=== PATIENT | female | born 2000 | race Caucasian/White ===

== ENCOUNTER 2021-04-08 11:10 | Emergency (ER) | payer OTHER ==
[2021-04-08 12:39] LABS: Bilirubin Neg (Negative); Blood, Urine Negative (Negative); Clarity Slightly Cloudy (Clear); Glucose, Urine (Dipstick) Normal (Negative); Ketone, Urine 15 mg/dL (Negative); Leukocyte 500 (Negative); Nitrite Negative (Negative); Protein, Urine (Dipstick) 15 mg/dl (Neg-Trace); Urobilinogen Normal mg/dL (Less than 2)
[2021-04-08 12:39] LABS: #Eosinphils 0.2 10x3/uL (0.0-0.5); #Monocytes 0.5 10x3/uL (0.0-1.1); #Neutrophils 7.8 10x3/uL (1.5-8.4); %Basophils 0.4 % (0.0-2.0); %Eosinophils 1.4 % (0.0-6.0); %Lymphocytes 22.9 % (18.0-47.0); %Monocytes 4.9 % (0.0-10.0); Hemoglobin 13.8 g/dL (12.0-15.5); Mean Corpuscular HGB CONC 34.1 g/dL (32.0-36.0); Mean Corpuscular Hemoglobin 29.6 pg (27.0-33.0); Mean Corpuscular Volume 86.7 fl (81.6-98.3); Mean Platelet Volume 10.7 fl (7.4-10.4); Platelet Count 246 10x3/uL (150-450); RBC Distribution Width 14.5 % (11.5-14.5); Red Blood Cell (RBC) Count 4.67 10x6/uL (3.90-5.03); White Blood Cell (WBC) Count 11.1 10x3/uL (3.5-10.5)
[2021-04-08 12:55] LABS: Bacteria/HPF 2+ HPF (None Seen); RBC/HPF 0-3 HPF (0-3)
[2021-04-08 12:58] LABS: ALT (SGPT) 7 U/L (8-55); AST (SGOT) 14 U/L (5-34); Alkaline Phosphatase 82 U/L (40-110); Anion Gap 14 mmol/L (10-20); BUN (Urea Nitrogen) 8 mg/dL (7.0-18.7); Bilirubin, Total 0.2 mg/dL (0.2-1.2); Calc. Creatinine Clearance 0 mL/min (70-130); Calcium 9.1 mg/dL (7.8-10.44); Carbon Dioxide 20 mmol/L (22-29); Chloride 106 mmol/L (98-107); Globulin 3.6 g/dL (2.4-3.5); Glucose 82 mg/dL (70-105); Lipase 24 U/L (8-78); Potassium 3.9 mmol/L (3.5-5.1); Protein, Total 7.6 g/dL (6.0-8.3); Sodium 136 mmol/L (136-145)
== END 2021-04-08 13:30 | disposition home or self-care (01) ==
LOC: CSHERS 11:10
DX: O26.892 Other specified pregnancy related conditions, second trimester (principal); R82.71 Bacteriuria; Z3A.18 18 weeks gestation of pregnancy
CPT/HCPCS: 36415; 76815; 80053; 81003; 81015; 83690; 84702; 85025; 86900; 86901; 87086

== ENCOUNTER 2022-04-24 14:33 | Emergency (ER) | payer OTHER | END 2022-04-24 15:27 | disposition home or self-care (01) | LOC: CSHERS 14:33 | DX: J06.9 Acute upper respiratory infection, unspecified (principal) | CPT/HCPCS: 99283 ==

== ENCOUNTER 2022-04-28 20:44 | Emergency (ER) | payer OTHER | END 2022-04-28 22:23 | disposition home or self-care (01) | LOC: CSHERS 20:44 | DX: O98.512 Other viral diseases complicating pregnancy, second trimester (principal); B34.9 Viral infection, unspecified; Z3A.19 19 weeks gestation of pregnancy | CPT/HCPCS: 99283 ==

== ENCOUNTER 2022-05-27 21:51 | Day surgery (SDC) | payer OTHER ==
[2022-05-27] MEDS ORDERED: hydrALAZINE 20 MG/ML VIAL SLOW IVP PRN (23:05)
[2022-05-27 23:27] LABS: Bilirubin Neg (Negative); Blood, Urine Negative (Negative); CAUTI Indications for Culture Pregnancy; Clarity Clear (Clear); Glucose, Urine (Dipstick) Normal (Negative); Ketone, Urine 5 mg/dL (Negative); Leukocyte 100 (Negative); Nitrite Negative (Negative); Protein, Urine (Dipstick) 15 mg/dl (Neg-Trace); Specific Gravity, Urine 1.025 (1.005-1.030)
[2022-05-27 23:28] LABS: Urine Culture Reflex Yes Yes
[2022-05-27 23:46] LABS: Bacteria/HPF 1+ HPF (None Seen); RBC/HPF 0-3 HPF (0-3)
== END 2022-05-28 01:30 | disposition home or self-care (01) ==
LOC: CSHLD/OP 21:51
PROVIDERS: ATTEND Family Medicine
DX: O26.892 Other specified pregnancy related conditions, second trimester (principal); M54.50 Low back pain, unspecified; R10.2 Pelvic and perineal pain; Z88.0 Allergy status to penicillin; Z3A.23 23 weeks gestation of pregnancy
CPT/HCPCS: 81001; 87086; 87480; 87510; 87660; 99285

== ENCOUNTER 2022-06-08 15:52 | Outpatient (CLI) | payer OTHER | END 2022-06-08 15:53 | disposition home or self-care (01) | LOC: CSHULT 15:52 | PROVIDERS: ATTEND Family Medicine | DX: Z34.82 Encounter for supervision of other normal pregnancy, second trimester (principal); Z3A.26 26 weeks gestation of pregnancy | CPT/HCPCS: 76805 ==

== ENCOUNTER 2022-08-20 10:36 | Inpatient (IN) | payer OTHER ==
[2022-08-20] MEDS ORDERED: hydrALAZINE 20 MG/ML VIAL SLOW IVP PRN ×3 (11:22→17:40)
[2022-08-20] MEDS ORDERED: Lidocaine 1% (PF) 30 ML VIAL ONE (11:27)
[2022-08-20] MEDS ORDERED: Lactated Ringer's 1,000 ML IV SCH (11:30)
[2022-08-20] MEDS ORDERED: Ondansetron PF 4 MG/2 ML Vial IVP PRN ×3 (12:16→17:40)
[2022-08-20] MEDS ORDERED: Lidocaine 1% (PF) 30 ML VIAL SC PRN (12:16)
[2022-08-20] MEDS ORDERED: Diphenoxylate HCl/Atropine Tablet PO PRN (12:16)
[2022-08-20] MEDS ORDERED: Butorphanol Tartrate 1 MG/ML VIAL SLOW IVP PRN (12:16)
[2022-08-20] MEDS ORDERED: Methylergonovine 0.2 MG/ML VIAL IM PRN (12:16)
[2022-08-20] MEDS ORDERED: Promethazine HCl 25 MG/ML VIAL IM PRN ×3 (12:16→17:40)
[2022-08-20] MEDS ORDERED: Carboprost 250 MCG/ML AMP IM PRN (12:16)
[2022-08-20] MEDS ORDERED: Misoprostol 200 MCG TAB PR PRN (12:16)
[2022-08-20] MEDS ORDERED: Clindamycin/D5W 900 mg/50 ml Premix Bag ONE (12:20)
[2022-08-20] MEDS ORDERED: NS w/ Oxytocin 30 units 500 ML IV SCH ×2 (12:30)
[2022-08-20] MEDS ORDERED: Fentanyl 100 MCG/2 ML VIAL SLOW IVP PRN (12:32)
[2022-08-20] MEDS ORDERED: Fentanyl 100 MCG/2 ML VIAL ONE (12:32)
[2022-08-20] MEDS ORDERED: Sodium Chloride 0.9% 100 ML ONE (12:36)
[2022-08-20] MEDS ORDERED: CEFAZOLIN 2 GM VIAL ONE (12:36)
[2022-08-20] MEDS ORDERED: CEFAZOLIN 2 GM in Sodium Chloride 0.9% 100 ML IVPB SCH (12:45)
[2022-08-20 12:47] VITALS: BMI 37.4
[2022-08-20] MEDS ORDERED: Fentanyl 2 mcg/Bup 0.1% Cadd 100 ML ONE (12:54)
[2022-08-20 13:24] LABS: Hemoglobin 13.4 g/dL (12.0-15.5); Mean Corpuscular HGB CONC 33.2 g/dL (32.0-36.0); Mean Corpuscular Hemoglobin 28.5 pg (27.0-33.0); Mean Corpuscular Volume 85.8 fl (81.6-98.3); Mean Platelet Volume 12.1 fl (7.4-10.4); Platelet Count 184 10x3/uL (150-450); RBC Distribution Width 13.6 % (11.5-14.5); Red Blood Cell (RBC) Count 4.71 10x6/uL (3.90-5.03); White Blood Cell (WBC) Count 13.7 10x3/uL (3.5-10.5)
[2022-08-20] MEDS ORDERED: diphenhydrAMINE 50 MG/ML VIAL IVP PRN (13:28)
[2022-08-20] MEDS ORDERED: Acetaminophen 325 MG TAB PO PRN (13:28)
[2022-08-20] MEDS ORDERED: Moisturizing Cream (Eucerin) 113 GM JAR TOP PRN (13:28)
[2022-08-20] MEDS ORDERED: Naloxone HCl 0.4 mg/ml Vial IVP PRN ×2 (13:28)
[2022-08-20] MEDS ORDERED: Lactated Ringer's 500 ML IV PRN (13:28)
[2022-08-20] MEDS ORDERED: ePHEDrine Sulfate 50 MG/10 ML VIAL SLOW IVP PRN (13:28)
[2022-08-20] MEDS ORDERED: Fentanyl 2 mcg/Bupivacaine 0.1% Cassette 100 ML EPIDURAL SCH (13:30)
[2022-08-20] MEDS ORDERED: Communication Order-Pharmacy FS SCH (13:30)
[2022-08-20 13:46] LABS: HBSAg Index 0.16 S/CO (0-0.99); Hep B Surf Ag - L&D Non-Reactive S/CO (NonReactive)
[2022-08-20 13:47] LABS: Syphilis Antibody Nonreactive (Nonreactive)
[2022-08-20] MEDS ORDERED: Clindamycin/D5W 900 MG in Premix Bag 1 BAG IVPB SCH (14:00)
[2022-08-20] MEDS ORDERED: Bupivacaine 0.25% HCL 30 ML VIAL ONE (14:00)
[2022-08-20 15:43] LABS: HIV (1/2) Antibody/Antigen Non-Reactive (NonReactive); HIV 1/2 INDEX 0.08 S/CO (<1.00)
[2022-08-20] MEDS ORDERED: HYDROcodone/Acetaminophen 5/325 mg Tablet PO PRN (17:40)
[2022-08-20] MEDS ORDERED: Benzocaine-Menthol 82.5 ML CAN TOP PRN (17:40)
[2022-08-20] MEDS ORDERED: Bisacodyl 10 MG SUPP PR PRN (17:40)
[2022-08-20] MEDS ORDERED: Boostrix 0.5 ML (Tdap) VIAL (>/=7 yrs of age) IM ONE (17:40)
[2022-08-20] MEDS ORDERED: Milk Of Magnesia 30 ML UDCUP PO PRN (17:40)
[2022-08-20] MEDS ORDERED: Lanolin Ointment 7 GM TUBE TOP PRN (17:40)
[2022-08-20] MEDS ORDERED: diphenhydrAMINE 25 MG CAP PO PRN (17:40)
[2022-08-20] MEDS: Ibuprofen 800 MG TAB PO SCH (17:48)
[2022-08-20] MEDS ORDERED: Ferrous Sulfate 325 MG TAB PO SCH (18:00)
[2022-08-20] MEDS: Docusate 100 MG CAP PO SCH (21:18)
[2022-08-21] MEDS: Ibuprofen 800 MG TAB PO SCH ×3 (01:21→18:04)
[2022-08-21] MEDS: Ferrous Sulfate 325 MG TAB PO SCH (07:14)
[2022-08-21] MEDS: Docusate 100 MG CAP PO SCH ×2 (08:18→21:35)
[2022-08-21] MEDS: Prenatal Vitamin 1 TAB PO SCH (08:18)
[2022-08-22] MEDS: Ibuprofen 800 MG TAB PO SCH ×2 (02:40→10:54)
[2022-08-22] MEDS: Ferrous Sulfate 325 MG TAB PO SCH (07:01)
[2022-08-22 08:28] VITALS: BP 110/71; TEMP 98
[2022-08-22] MEDS: Prenatal Vitamin 1 TAB PO SCH (09:43)
[2022-08-22] MEDS: Docusate 100 MG CAP PO SCH (09:43)
== END 2022-08-22 16:20 | disposition home or self-care (01) | DRG 807 ==
LOC: CSHLD/OP 10:36 → CSHLD 12:14 → CSHPP 16:53
PROVIDERS: ADMIT Family Medicine; ATTEND Family Medicine
PROC: 10E0XZZ Delivery of Products of Conception, External Approach (ICD-10-PCS; principal; 2022-08-20)
DX: O60.14X0 Preterm labor third trimester with preterm delivery third trimester, not applicable or unspecified (principal); Z37.0 Single live birth; Z88.0 Allergy status to penicillin; Z3A.36 36 weeks gestation of pregnancy; Z79.899 Other long term (current) drug therapy
CPT/HCPCS: 36415; 85027; 86780; 86850; 86900; 86901; 87340; 87389; 88307; 99285; J2001; J2590; J3490; J7120; S0020

== ENCOUNTER 2023-05-15 18:19 | Emergency (ER) | payer OTHER ==
[2023-05-15] MEDS ORDERED: Acetaminophen 500 MG TAB ONE (19:18)
[2023-05-15 20:01] LABS: SARS-CoV-2 NAA Rapid Test Not Detected (NotDetected)
== END 2023-05-15 20:55 | disposition home or self-care (01) ==
LOC: CSHERS 18:19
DX: O99.513 Diseases of the respiratory system complicating pregnancy, third trimester (principal); J06.9 Acute upper respiratory infection, unspecified; Z3A.33 33 weeks gestation of pregnancy; Z20.822 Contact with and (suspected) exposure to COVID-19
CPT/HCPCS: 99283

== ENCOUNTER 2023-06-15 08:19 | Inpatient (IN) | payer OTHER ==
[2023-06-15 08:41] VITALS: BMI 34.4
[2023-06-15] MEDS ORDERED: hydrALAZINE 20 MG/ML VIAL SLOW IVP PRN ×3 (08:52→14:08)
[2023-06-15] MEDS ORDERED: HYDROcodone/Acetaminophen 5/325 mg Tablet PO PRN (09:52)
[2023-06-15] MEDS ORDERED: Carboprost 250 MCG/ML AMP IM PRN (09:52)
[2023-06-15] MEDS ORDERED: Lidocaine 1% (PF) 30 ML VIAL SC PRN (09:52)
[2023-06-15] MEDS ORDERED: Methylergonovine 0.2 MG/ML VIAL IM PRN (09:52)
[2023-06-15] MEDS ORDERED: Ondansetron PF 4 MG/2 ML Vial IVP PRN ×2 (09:52→14:08)
[2023-06-15] MEDS ORDERED: Promethazine HCl 25 MG/ML VIAL IM PRN ×2 (09:52→14:08)
[2023-06-15] MEDS ORDERED: Acetaminophen 500 MG TAB PO PRN (09:52)
[2023-06-15] MEDS ORDERED: Tranexamic Acid 1,000 MG/10 ML VIAL IVP PRN (09:52)
[2023-06-15] MEDS ORDERED: fentaNYL 50 mcg/mL 1 mL Vial SLOW IVP PRN (09:52)
[2023-06-15] MEDS ORDERED: Diphenoxylate HCl/Atropine Tablet PO PRN (09:52)
[2023-06-15] MEDS ORDERED: Ibuprofen 800 MG TAB PO PRN (09:52)
[2023-06-15] MEDS ORDERED: Misoprostol 200 MCG TAB PR PRN (09:52)
[2023-06-15] MEDS ORDERED: Lactated Ringer's 1,000 ML IV SCH (10:00)
[2023-06-15] MEDS ORDERED: Oxytocin 30 units/NS 500 ML 500 ML IV SCH ×3 (10:00)
[2023-06-15] MEDS ORDERED: fentaNYL/Ropivacaine Epidural 100 ML ONE (10:25)
[2023-06-15 10:26] LABS: Hematocrit 38.1 % (34.9-44.5); Hemoglobin 12.1 g/dL (12.0-15.5); Mean Corpuscular HGB CONC 31.8 g/dL (32.0-36.0); Mean Corpuscular Hemoglobin 25.3 pg (27.0-33.0); Mean Corpuscular Volume 79.5 fl (81.6-98.3); Mean Platelet Volume 11.5 fl (7.4-10.4); Platelet Count 203 10x3/uL (150-450); RBC Distribution Width 15.6 % (11.5-14.5); Red Blood Cell (RBC) Count 4.79 10x6/uL (3.90-5.03); White Blood Cell (WBC) Count 10.3 10x3/uL (3.5-10.5)
[2023-06-15 11:01] LABS: Syphilis Antibody Nonreactive (Nonreactive); Syphilis Antibody Index 0.64 S/CO (<1.00 Non-Reactive)
[2023-06-15 11:02] LABS: HBSAg Index 0.19 S/CO (0-0.99); Hep B Surf Ag - L&D Non-Reactive S/CO (NonReactive)
[2023-06-15] MEDS ORDERED: Ibuprofen 800 MG TAB PO SCH (14:00)
[2023-06-15] MEDS ORDERED: diphenhydrAMINE 25 MG CAP PO PRN (14:08)
[2023-06-15] MEDS ORDERED: Lanolin Ointment 7 GM TUBE TOP PRN (14:08)
[2023-06-15] MEDS ORDERED: Benzocaine-Menthol 82.5 ML CAN TOP PRN (14:08)
[2023-06-15] MEDS ORDERED: Milk Of Magnesia 30 ML UDCUP PO PRN (14:08)
[2023-06-15] MEDS ORDERED: Bisacodyl 10 MG SUPP PR PRN (14:08)
[2023-06-15] MEDS ORDERED: Boostrix 0.5 ML (Tdap) VIAL (>/=7 yrs of age) IM ONE (14:08)
[2023-06-15] MEDS: HYDROcodone/Acetaminophen 5/325 mg Tablet PO PRN ×2 (17:47→22:20)
[2023-06-15] MEDS: Ferrous Sulfate 325 MG TAB PO SCH (18:24)
[2023-06-15] MEDS: Docusate 100 MG CAP PO SCH (22:17)
[2023-06-16] MEDS: Ibuprofen 800 MG TAB PO SCH ×3 (03:04→17:49)
[2023-06-16] MEDS: Prenatal Vitamin 1 TAB PO SCH (07:49)
[2023-06-16] MEDS: Docusate 100 MG CAP PO SCH ×2 (07:49→22:04)
[2023-06-16] MEDS: Ferrous Sulfate 325 MG TAB PO SCH ×2 (11:23→17:48)
[2023-06-17] MEDS: Ibuprofen 800 MG TAB PO SCH (02:11)
[2023-06-17] MEDS: Prenatal Vitamin 1 TAB PO SCH (08:17)
[2023-06-17] MEDS: Docusate 100 MG CAP PO SCH (08:17)
[2023-06-17 08:20] VITALS: BP 114/64; TEMP 98
== END 2023-06-17 10:45 | disposition home or self-care (01) | DRG 807 ==
LOC: CSHLD/OP 08:19 → CSHLD 10:21 → CSHPP 14:05
PROVIDERS: ADMIT Family Medicine; ATTEND Family Medicine
PROC: 10E0XZZ Delivery of Products of Conception, External Approach (ICD-10-PCS; principal; 2023-06-15)
PROC: 0UQMXZZ Repair Vulva, External Approach (ICD-10-PCS; 2023-06-15)
PROC: 10907ZC Drainage of Amniotic Fluid, Therapeutic from Products of Conception, Via Natural or Artificial Opening (ICD-10-PCS; 2023-06-15)
DX: O70.0 First degree perineal laceration during delivery (principal); Z37.0 Single live birth; Z3A.38 38 weeks gestation of pregnancy; Z88.0 Allergy status to penicillin
CPT/HCPCS: 36415; 51702; 85027; 86780; 86850; 86900; 86901; 87340; 99285; J2590